=== PATIENT | female | born 1950 | race Caucasian/White ===

== ENCOUNTER → 2017-08-02 | Outpatient (CLI) | payer MEDICARE, MEDICAID ==
[~2017-08-02] MED LIST: ASPIR 8181 MG PO; ATORVASTATIN CA40 MG PO; BRILINTA90 MG PO; COMBIVENT INH; FISH OIL 1,001000 M2 PO; FLONASE 0.05%50 MCG NASAL; LASIX 20 MG TAB20 MG PO; NITROGLYCERIN0.4 MG SUBLING; OMEPRAZOLE20 M2 PO; PRAVACHOL40 MG PO; XANAX 0.5 MG0.5 MG PO
== END ==
LOC: M.ULTRA 08-01 11:30
DX: I65.23 Occlusion and stenosis of bilateral carotid arteries (principal); I10 Essential (primary) hypertension; R06.00 Dyspnea, unspecified; R07.9 Chest pain, unspecified; E78.2 Mixed hyperlipidemia; I25.10 Atherosclerotic heart disease of native coronary artery without angina pectoris; Z72.0 Tobacco use

== ENCOUNTER → 2019-02-12 | Outpatient (CLI) | payer MEDICARE, MEDICAID ==
--- NOTE | 2019-02-12 13:59 | CARDNUC ---
[place] [address] CARDIAC NUCLEAR IMAGING REPORT Name: NIESAHSIM DUNN Room: [facility]#: [id number] Admission: 02/12/19 Attend Phys: Odell Rogers, Discharge: Date of : 48 Date of Service: 02/12/19 1359 Report #: [id number] THIS REPORT FOR: //name// APPROVED REPORT Imaging Protocol: Rest Tc-99m/Stress Tc-99m 1 day Study performed: 02/12/2019 09:45:00 Indication: Dyspnea Patient Location: Out-Patient Stress Tech: Elsy Albright Stress Nurse: Mary Torres RN NM Tech:VINICIO Marie Ht: 5 ft 2 in Wt: 140 lbs BSA: 1.64 m2 BMI: 25.60 Medical History Medical History: cad, hyprlipidemia, hypertension Medications: carvedilol, asa-81, fenofibrate Allergies: codeine, morphone, penicillin Cardiac Risk Factors: age, hyperlipidemia, hyprtension Previous Cardiac Procedures: pci Exercise History: Indeterminate Meds Held (24 hrs): carvedilol Resting Data Rest SPECT myocardial perfusion imaging was performed in supine position 30 minutes following the intravenous injection of 11.0 mCi of Tc-99m Sestamibi. Time of rest injection: 1000 Date: 02/12/2019 The images were gated to evaluate regional wall motion and calculate left ventricular ejection fraction. Administration Route: IV Administration Site: Right Arm Pharmacologic Stress Pharmacologic stress test was performed by injecting Regadenoson 0.4 mg IV push over 10-15 seconds immediately followed by the intravenous injection of 33.2 mCi of Tc-99m Sestamibi. Time of stress injection: 1130 Date: 02/12/2019 Administration Route: IV Administration Site: Right Arm Gated Stress SPECT was performed 40 [place] [address] CARDIAC NUCLEAR IMAGING REPORT Name: SIM SCHERER Room: [facility]#: [id number] Admission: 02/12/19 Attend Phys: Odell Rogers, Discharge: Date of : 48 Date of Service: 02/12/19 1359 Report #: [id number] The images were gated to evaluate regional wall motion and calculate left ventricular ejection fraction. Prone imaging was performed. Stress Test Details Stress Test: Pharmacologic stress testing performed using 0.4 mg of regadenoson per 5 mL given IV over 10 seconds. Reason for pharmacologic stress test: physical limitation. HR Max Heart Rate (APMHR): 151 bpm Resting HR: 72 bpm Target HR (85% APMHR): 128 bpm Max HR Achieved: 94 bpm % of APMHR: 62 Recovery HR: 86 bpm HR response to stress: Normal HR response to stress BP Resting BP: 146/85 mmHg Max BP: 224/87 mmHg Recovery BP: 157/86 mmHg BP response to stress: Abnormal hypertensive response to stress. ECG Resting ECG: Sinus Rhythm, one vpc Stress ECG: Sinus Rhythm, normal EKG ST Change: None Arrhythmia: None Recovery ECG: Sinus Rhythm, normal EKG Recovery ST Change: None Recovery Arrhythmia: None Clinical Reason for Termination: Completed protocol Stress Symptoms: None Exercise duration: 0 min sec Exercise capacity: 1 METs Nurse Comments pt unable to walk on treadmill due to weak legs Stress ECG Conclusion Normal hemodynamic response to pharmacologic stress. Non-diagnostic ekg stress due to failure to attain target HR. Study Quality Study: [place] [address] CARDIAC NUCLEAR IMAGING REPORT Name: SIM SCHERER Room: [facility]#: [id number] Admission: 02/12/19 Attend Phys: Odell Rogers, Discharge: Date of : 48 Date of Service: 02/12/19 1359 Report #: [id number] Artifact: Mild Breast artifact Lung Uptake: Normal Study Data At rest, the left ventricular ejection fraction was 75%.. Post stress, the left ventricular ejection was 77%.. TID = 1.11. Perfusion No evidence of stress induced ischemia or prior myocardial infarction. Normal left ventricular size and function with no regional wall motion abnormalities. Images were reviewed using [employer]. Nuclear Conclusion ECG Findings: non-diagnostic Clinical Findings: negative for ischemia Nuclear Findings: negative for ischemia Exercise Capacity: not assessed Left Ventricular Function: normal Risk Study: low Normal study. No scintigraphic evidence for myocardial ischemia or scar. <Conclusion> Normal hemodynamic response to pharmacologic stress. Non-diagnostic ekg stress due to failure to attain target HR. <ELECTRONICALLY SIGNED> By: Linda Mederos MD, [facility] 02/12/19 1359 1359 1359 Linda Mederos MD, FACC /INF
== END ==
LOC: M.NUC 01-21 15:08 → M.CRD 09:00 → M.NUC 09:45
DX: R06.00 Dyspnea, unspecified (principal); I25.10 Atherosclerotic heart disease of native coronary artery without angina pectoris; E78.5 Hyperlipidemia, unspecified; I10 Essential (primary) hypertension; Z88.5 Allergy status to narcotic agent; Z88.0 Allergy status to penicillin

== ENCOUNTER 2019-12-29 08:44 | Observation (INO) | payer MEDICARE, MEDICAID ==
[~2019-12-29] VITALS: Ht 154.9 cm; Wt 62.6 kg
[2019-12-29] VITALS (13 sets, daily range): BP systolic 116–147; BP diastolic 53–89
--- NOTE | ~2019-12-29 | H ---
[address] [address] HISTORY AND PHYSICAL Name: SIM SCHERER Room: [address] Sj Morgan#: [id number] Admission: 12/29/19 Attend Phys: Odell Rogers MD Discharge: 12/30/19 Date of : 48 Report #: [id number] THIS REPORT FOR: //name// cc: George Chang Joel M. DO ~ THIS REPORT FOR: //name// Please refer to the History and Physical performed in the physician's office. By: [facility]7Medical Records Staff [facility] /MARY
[2019-12-29] MEDS ORDERED: LIVALO4 MG PO (09:20)
[2019-12-29 09:22] LABS: HEMATOCRIT 43.7 % (37.0-47.0); HEMOGLOBIN 15.1 gm/dL (12.0-15.0); MCH 30.8 pg (26.0-34.0); MCHC 34.5 g/dL (28.0-37.0); MCV 89.2 fL (80.0-100.0); MPV 8.5 fl. (7.2-11.1); RBC 4.9 mil/uL (4.20-5.00); RDW-CV 13.9 % (10.5-14.5); WBC 6.3 thou/uL (4.0-11.0)
[2019-12-29 09:32] LABS: APTT 26.6 Seconds (25.0-31.3); INR 1.1
[2019-12-29 09:33] LABS: ANION GAP 6 mmol/L (7-16); BUN 17 mg/dL (7-18); CALCIUM 8.7 mg/dL (8.5-10.1); CHLORIDE 104 mmol/L (98-107); CO2 31 mmol/L (21-32); CREATININE 0.7 mg/dL (0.6-1.3); GLUCOSE 96 mg/dL (70-99); POTASSIUM 4.3 mmol/L (3.5-5.1); SODIUM 141 mmol/L (136-145)
[2019-12-29 09:37] LABS: ALBUMIN 3.4 g/dL (3.4-5.0); ALKALINE PHOSPHATASE 86 U/L (46-116); CHOLESTEROL 226 mg/dL (<200); HDL CHOLESTEROL 45 mg/dL (>40); LDL CHOLESTEROL ND mg/dL (<100); SGOT 20 U/L (15-37); SGPT 24 U/L (30-65); TOTAL BILIRUBIN 0.3 mg/dL (<0.1-1.0); TOTAL PROTEIN 7.1 g/dL (6.4-8.2); TRIGLYCERIDE 401 mg/dL (<150); VLDL 80 mg/dL (<40)
[2019-12-29 09:39] LABS: SERUM ASSESSMENT Clear
--- NOTE | 2019-12-29 12:27 | EKG ---
[place] [address] ELECTROCARDIOGRAM REPORT Name: SIM SCHERER Room: [address]R.#: [id number] Admission: 12/29/19 Attend Phys: Odell Rogers, Discharge: Date of : 48 Date of Service: 12/29/19 0916 Report #: [id number] THIS REPORT FOR: //name// 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
[2019-12-29] MEDS ORDERED: COREG3.125 MG PO (14:45)
--- NOTE | 2019-12-29 16:19 | EKG ---
[place] [address] ELECTROCARDIOGRAM REPORT Name: SIM SCHERER Room: [address]R.#: [id number] Admission: 12/29/19 Attend Phys: Odell Rogers, Discharge: Date of : 48 Date of Service: 12/29/19 1311 Report #: [id number] THIS REPORT FOR: //name// [facility] Test Date: 2019-12-29 Test Time: 13:11:50 Pat Name: SIM SCHERER Department: Room: [facility] Gender: F Duty Officer: : 1950 Requested By: Odell Rogers Order Number: [id number] Zulema MD: Odell Rogers Measurements Intervals [place] Rate: 78 P: 71 CT: 160 QRS: 73 QRSD: 102 T: 82 QT: 378 QTc: 431 Interpretive Statements Sinus rhythm Compared to ECG 12/29/2019 09:16:58 No significant changes Electronically Signed On 12-29-2019 16:19:50 CDT by Odell Rogers [email or web address] <ELECTRONICALLY SIGNED> By: Odell Rogers MD, FAC 12/29/19 1619 1311 1311 Odell Rogers MD, [facility] /EPI
[2019-12-29] MEDS ORDERED: VENTOLIN HFA INH8 GM INH (17:50)
[2019-12-29] MEDS ORDERED: ANORO ELLIPTA1 EACH IH (17:51)
[2019-12-29] MEDS ORDERED: CHILDREN'S ZYRT10 M1 PO (17:51)
--- NOTE | 2019-12-29 19:39 | NUR ---
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 RIGHT GROIN CATH SITEIS SOFT, NO HEMATOMA, NO BLEEDING,SMALLAMOUNT OF BRUISING NOTED. KEPT BEDREST UNTIL 1800, GOT UP WITHOUT CALLING STAFF TO CHAIR. SAT UP FOR 30 MIN AND ON RECHECK THE RIGHT GROIN HAS MORE BRUISING THAT IS DARKERPURPLE WITH SMALL AMOUNT OF BLOOD ON DRESSING. SHE WAS EDUCATED TOLAY BACK IN BED FOR TONIGHT SO THERE ARE NO COMPLICATIONS WITH BLEEDING.SHE VERBALIZED UNDERSTANDING. BP MONITORED ANDAPPROPRIATE. VSS. SR ON THE MONITOR. C/O SOA, HX OFATHSMA, BREATHING TX ORDERED. REPORT GIVEN TO LINNEA BLACK.
[2019-12-30 03:59] LABS: HEMATOCRIT 41.5 % (37.0-47.0); HEMOGLOBIN 14.4 gm/dL (12.0-15.0); MCH 30.8 pg (26.0-34.0); MCHC 34.7 g/dL (28.0-37.0); MCV 88.6 fL (80.0-100.0); MPV 8.1 fl. (7.2-11.1); RBC 4.69 mil/uL (4.20-5.00); RDW-CV 13.6 % (10.5-14.5)
[2019-12-30 04:00] VITALS: BP 116/75
[2019-12-30 04:18] LABS: ALBUMIN 3.3 g/dL (3.4-5.0); CALCIUM 8.9 mg/dL (8.5-10.1); CREATININE 0.9 mg/dL (0.6-1.3); POTASSIUM 3.6 mmol/L (3.5-5.1); TOTAL BILIRUBIN 0.4 mg/dL (<0.1-1.0); TOTAL PROTEIN 6.9 g/dL (6.4-8.2)
--- NOTE | 2019-12-30 06:28 | NUR ---
PATIENT PROGRESSING TOWARDS GOALS: RIGHT GROIN CATH SITE BRUISING BUT REMAINS SOFT, MINIMAL BLEEDING NOTED ON DRESSING, NO EXTENSION BEYOND MARKED BORDERS FROM THE BEGINNING OF THE SHIFT. PATIENT DENIES PAIN AND DISCOMFORT. PATIENT IS HOPEFUL TO BE DISCHARGED TODAY. CALL LIGHT WITHIN REACH
[2019-12-30 08:02] VITALS: BP 109/60
[2019-12-30] MEDS ORDERED: EFFIENT10 MG PO (08:37)
--- NOTE | 2019-12-30 09:56 | NUR ---
PT DISCHARGED HOME. COPY OF DISCHARGE PAPERWORK TO PT WITH ELPLAINATION. PT VERBALIZED UNDERSTANDING. IV ACCESS REMOVED.
--- NOTE | 2019-12-30 15:07 | EKG ---
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: ELOISE : 1950 Requested By: Odell Rogers Order Number: [id number] [place] MD: Walker Gresham Measurements Intervals [place] Rate: 90 P: 69 [place]: 151 QRS: 66 QRSD: 98 T: 71 QT: 374 QTc: 458 Interpretive Statements Sinus rhythm Borderline T wave abnormalities Compared to ECG 12/29/2019 13:11:50 T-wave abnormality now present Electronically Signed On 12-30-2019 15:06:46 CDT by Walker Gresham [email or web address] <ELECTRONICALLY SIGNED> By: Walker Gresham MD, [facility] 12/30/19 1506 0339 0339 Walker Gresham MD, [facility] /EPI
--- NOTE | 2019-12-31 08:34 | D ---
[address] [address] DISCHARGE SUMMARY Name: SIM SCHERER Room: [address] Sj Morgan#: [id number] Admission: 12/29/19 Attend Phys: Odell Rogers MD Discharge: 12/30/19 Date of : 48 Report #: [id number] THIS REPORT FOR: //name// cc: George Chang Joel M. DO THIS REPORT FOR: //name// CC: Mariusz Rogers DISCHARGE DIAGNOSES: 1. Unstable angina. 2. Coronary artery disease. 3. Hyperlipidemia. 4. Hypertension. 5. History of tobacco abuse. 6. Carotid vascular disease. PROCEDURES DURING THE HOSPITALIZATION: 1. Coronary angiography. 2. Left heart catheterization. 3. Left ventriculography. 4. Percutaneous coronary intervention to the first diagonal branch of the left anterior descending coronary artery. 5. Percutaneous coronary intervention to the first obtuse marginal branch of the circumflex coronary artery. HOSPITAL COURSE: The patient was brought to the cardiac catheterization lab with increasing chest pain, typical for exertional angina consistent with unstable angina. The patient was brought to the cardiac catheterization lab where coronary angiography revealed high grade stenoses of the first diagonal branch of the LAD and first obtuse marginal branch of the circumflex coronary artery. The patient underwent percutaneous coronary intervention with drug-eluting stents placed to the proximal portion of the first diagonal branch of the left anterior descending coronary artery and the proximal portion of the first obtuse marginal branch of the circumflex coronary artery without complication. Postoperatively, the patient did have some bruising of the femoral arteriotomy site. There was no significant hematoma formation. The patient otherwise recovered in usual fashion. The patient is being discharged uneventfully. DISCHARGE MEDICATIONS: Will include Effient 10 mg daily, to be continued for 6 months. Aspirin 81 mg daily, omeprazole 20 mg daily, pitavastatin 4 mg daily, carvedilol 3.125 mg b.i.d., Zyrtec 10 mg daily, Nitrostat 0.4 mg sublingual p.r.n., Combivent inhaler 1-2 puffs q.i.d., fluticasone nasal inhaler 2 sprays daily, alprazolam 0.5 mg p.o. b.i.d., albuterol inhaler 1 puff q. 4 [place] [address] DISCHARGE SUMMARY Name: SIM SCHERER Room: [address]#: [id number] Admission: 12/29/19 Attend Phys: Odell Rogers MD Discharge: 12/30/19 Date of : 48 Report #: [id number] p.r.n., Anoro Ellipta inhaler 1 inhalation daily. DISPOSITION: I have asked the patient to follow up with Cardiology office in 4 weeks. <ELECTRONICALLY SIGNED> By: Odell Rogers MD, FACC 12/31/19 0834 0845 0911Michael Emmanuel Rogers MD, [facility] /nt
--- NOTE | 2019-12-31 15:41 | CARD ---
[address] [address] CARDIAC CATH REPORT Name: SIM SCHERER Room: [address] Sj Morgan#: [id number] Admission: 12/29/19 Attend Phys: Odell Rogers MD Discharge: 12/30/19 Date of : 48 Report #: [id number] THIS REPORT FOR: //name// cc: George Chang Joel M. DO ~ APPROVED REPORT Study performed: 12/29/2019 07:43:39 Patient Details The patient is a 69 year-old female Event Personnel Odell Rogers Librarian Specialist, Lexi Aguirre RN Typewriter Ribbon Winder, Paramjit Perez ELECTRICIAN SUPERVISOR Monitor, Jaimie Qureshi RTR Scrub, Anaya York RN Typewriter Ribbon Winder Procedures Performed Art Access - R femoral artery, Left Heart Cath w/or w/o Coronaries LHC, RENZO Place w/wo Plasty Single DIAG , RENZO Place w/wo Plasty Addl BR OM 1 DESADDL , Hemostasis w/ Angioseal Admission/Lab Medications/Medications given during procedure Angiomax IV 10 ml, Aspirin PO 325 mg, Effient PO 60 mg Procedure Narrative The patient was brought electively to the Cardiac Catheterization Laboratory and was prepped and draped in a sterile manner. The right femoral was infiltrated with 2% Lidocaine subcutaneous anesthesia. A 6F Waskish sheath was inserted into the right femoral artery. Coronary angiography was performed using coronary diagnostic catheters. The right coronary system was accessed and visualized with a 6F JR4 catheter. The left coronary system was accessed and visualized with a 6F JL4 catheter. The left ventricle was accessed and visualized with a 6F Pigtail catheter. Left ventricular/Aortic Valve gradient assessed via catheter pullback. Left ventriculogram was performed in GOMEZ projection. Closure device was deployed with a 6 Fr Angioseal STS 6Fr. The patient tolerated the procedure well and there were no complications associated with the procedure. There was no hematoma. Intraoperative Conscious Sedation Sedation start time: 1017 Case end Time: 1128 Fentanyl 50 mcg Versed 2 [place] [address] CARDIAC CATH REPORT Name: SIM SCHERER [address] [id number] Admission: 12/29/19 Attend Phys: Odell Rogers MD Discharge: 12/30/19 Date of : 48 Report #: [id number] Fluoro Time: 15.7 minutes Dose: DAP 079066 cGycm2 1754 mGy Contrast Type and Amount: Visipaque 410 ml Coronary Angiography The patient's coronary anatomy is right dominant. Diagnostic Cath Left Main The left main coronary artery is short and normal and bifurcates into a left anterior descending and circumflex coronary artery. LAD The left anterior descending coronary artery has some mild plaquing proximally. There is approximately 30% narrowing proximally. The mid and distal vessel are free of significant disease. Diagonal 1 A large branch first diagonal branch has a calcified 70% stenosis proximally. Circumflex The circumflex coronary artery is free of significant disease in its proximal mid and distal portion. OM1 A large and branched first obtuse marginal branch has a 90% narrowing proximally. OM2 A small second obtuse marginal branch is normal. Right Coronary The right coronary artery has a widely patent stent extending from the proximal to mid vessel. Distally there are 20% narrowings noted. R PDA The right PDA has a 50% narrowing in its mid to distal portion. RPLV The right posterior lateral LV branch is free of significant disease. Left Ventriculography The left ventricle is normal in size with normal contractility. The left ventricular ejection fraction is estimated to be 65-70%. Hemodynamics The aortic pressure is 160/85 mmHg with a mean of 115 mmHg. The left ventricular pressure is 120/8 mmHg with a mean of mmHg. The left ventricular end diastolic pressure is 13 mmHg. PCI Technique Lesion Anticoagulation was achieved with Angiomax. Patient was preloaded with Angiomax IV 10 ml. Percutaneous coronary intervention was performed on the lateral first diagnonal branch segment. The lesion stenosis prior to intervention was 70% with MARSHA 3 flow. A 6FR XB 3.0 [place] [address] CARDIAC CATH REPORT Name: SIM SCHERER Room: [address] Sj Morgan#: [id number] Admission: 12/29/19 Attend Phys: Odell Rogers MD Discharge: 12/30/19 Date of : 48 Report #: [id number] 100CM Guide Catheter was used to engage the lm ostium. A BMW 190cm Interventional Guidewire was used to cross the lesion. BALLOON DILATION A Balloon catheter Mini Trek RX 2.0 X 12 was inserted and inflated up to 9.00atm for 3seconds. Additional Inflation: 12.00atm for 14seconds. STENT DEPLOYMENT A drug-eluting stent Chris RX Stent 2.0X12mm was inserted and inflated up to 14.00atm for 20seconds. Additional Inflation: 12.00atm for 11seconds. Additional Inflation: 14atm for 12seconds. POST STENT DEPLOYMENT BALLOON DILATION A Balloon catheter NC Trek RX 2.25 X 8 was inserted and inflated up to 11.00atm for 15seconds. Additional Inflation: 16atm for 7seconds. Final angiography reveals 10 % stenosis with MARSHA 3 flow. PCI Technique Lesion 2 Percutaneous Coronary Intervention was performed on the first obtuse marginal branch segment. Patient was preloaded with Angiomax IV 10 ml. The lesion stenosis prior to intervention was 90% with MARSHA 3 flow. A 6FR XB 3.0 100CM Guide Catheter was used to engage the lm ostium. A BMW 190cm Interventional Guidewire was used to cross the lesion. Balloon Dilation A Balloon catheter Trek RX 2.5 X 8 was inserted and inflated up to 12atm for 10seconds. Additional Inflation: 12atm for 6seconds. Stent Deployment A drug-eluting stent Chris RX Stent 2.05N79ml was inserted and inflated up to 12atm for 8seconds. Additional Inflation: 13atm for 10seconds. Final angiography reveals 0 % stenosis with MARSHA 3 flow. Conclusion 1. Hemodynamically significant stenoses noted in the first diagonal and first obtuse marginal branches. 2. Widely patent stent noted extending from the proximal to mid right coronary artery. 3. Normal left ventricular systolic function. [address] [address] CARDIAC CATH REPORT Name: SIM SCHERER Room: [address]#: [id number] Admission: 12/29/19 Attend Phys: Odell Rogers MD Discharge: 12/30/19 Date of : 48 Report #: [id number] 4. Normal left ventricular end-diastolic pressure. 5. Successful PCI at the sute of 70% first diagonal stenosis with 10% residual narrowing 6. Successful PCI at the site of 90% narrowing of the first marginal branch of the Cx with 0% residual narrowing Recommendations 1. Continue aggressive risk factor modification. 2. Percutaneous coronary intervention to the first diagonal and first obtuse marginal branches. Medications Administered Aspirin (any) Prasugrel Diagnostic Cath Approved by: Odell Rogers MD Date/Time: 12/31/2019 15:40:22 <ELECTRONICALLY SIGNED> By: Walker Gresham MD, [facility] 12/31/19 1541 1541 1541Walker Gresham MD, FAC /INF
== END 2019-12-30 10:25 | disposition home or self-care (01) ==
LOC: M.CL 08:44 → M.2W 11:41 → M.TBA-CV 11:41 → M.2W 14:05
PROVIDERS: ADMIT Internal Medicine Cardiovascular Disease; ATTEND Internal Medicine Cardiovascular Disease
DX: Z03.818 Encounter for observation for suspected exposure to other biological agents ruled out (principal); I25.110 Atherosclerotic heart disease of native coronary artery with unstable angina pectoris; I10 Essential (primary) hypertension; E78.5 Hyperlipidemia, unspecified

== ENCOUNTER 2021-05-28 16:25 | Inpatient (IN) | payer OTHER, MEDICAID ==
[~2021-05-28] VITALS: Ht 157.5 cm; Wt 62.6 kg
[~2021-05-28 16:25] MED LIST changes: +ANORO ELLIPTA1 EACH IH; +CHILDREN'S ZYRT10 M1 PO; +COREG3.125 MG PO; +EFFIENT10 MG PO; +LIVALO4 MG PO; +VENTOLIN HFA INH8 GM INH
[2021-05-28 16:26] VITALS: BP 159/72
[2021-05-28 18:05] LABS: INFLUENZA A ANTIGEN Negative (Negative); INFLUENZA B ANTIGEN Negative (Negative)
[2021-05-28 18:25] LABS: ABSOLUTE LYMPHOCYTES 1.3 thou/uL (0.8-5.3); HEMOGLOBIN 14.4 gm/dL (12.0-15.0)
[2021-05-28 18:33] LABS: ABSOLUTE EOSINOPHILS 0.1 thou/uL (0.0-0.7); ABSOLUTE MONOCYTES 0.5 thou/uL (0.0-1.2); ABSOLUTE NEUTROPHILS 6.1 thou/uL (1.6-8.1); BASOPHILS 0.5 %; EOSINOPHILS 0.7 %; HEMATOCRIT 43.6 % (37.0-47.0); MCH 28.6 pg (26.0-34.0); MCV 86.7 fL (80.0-100.0); MONOCYTES 6.7 %; NUCLEATED RBCS 1 /100WBC; POLYS 76.1 %; RBC 5.03 mil/uL (4.20-5.00); RDW-CV 15.6 % (10.5-14.5)
[2021-05-28 19:08] LABS: CALCIUM 8.9 mg/dL (8.5-10.1); CREATININE 0.8 mg/dL (0.6-1.3); POTASSIUM 3.8 mmol/L (3.5-5.1)
[2021-05-28 19:10] LABS: PLATELET COUNT* 300 thou/uL (150-400)
[2021-05-28 19:18] LABS: ALBUMIN 2.8 g/dL (3.4-5.0); TOTAL BILIRUBIN 0.3 mg/dL (<0.1-1.0); TOTAL PROTEIN 7.2 g/dL (6.4-8.2)
[2021-05-28 22:15] VITALS: BP 125/77
[2021-05-29 02:15] VITALS: BP 136/85
[2021-05-29 05:25] VITALS: BP 125/77; BP 132/63
--- NOTE | 2021-05-29 08:17 | EKG ---
[place] [address] ELECTROCARDIOGRAM REPORT Name: SIM SCHERER Room: [place] [address] ADM IN 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
[2021-05-29 09:00] VITALS: BP 133/73
--- NOTE | 2021-05-29 09:50 | NUR ---
Pt is admitted on 05/28/21 with Hypoxia/Pneumonia. Called pt's significant other - Richard to complete assessment. Richard reports they live in a home with 5 steps to enter but no steps in the home. Pt was independent previously with ADL's. Pt was independent with mobility. Pt has tried a CPAP machine but refuses to use it. Pt has no hx of SNF. Richard reports she has a recent hx of [facility] for home health. Pt was supposed to see her PCP today. CM to continue to follow for discharge planning.
[2021-05-29 14:45] VITALS: BP 101/69
[2021-05-29 20:00] VITALS: BP 133/79
[2021-05-30] VITALS (8 sets, daily range): BP systolic 107–138; BP diastolic 55–83
[2021-05-31] VITALS: BP 149/75
[2021-05-31 02:37] LABS: CALCIUM 8.4 mg/dL (8.5-10.1); CREATININE 0.7 mg/dL (0.6-1.3); POTASSIUM 4.2 mmol/L (3.5-5.1)
[2021-05-31 08:00] VITALS: BP 141/77
--- NOTE | 2021-05-31 08:10 | NUR ---
PATIENT HAS SLEPT OFF AND ON DURING THE NIGHT. VSS ON 5L 02 VIA NASAL CANNULA. LUNG SOUNDS DIM WITH WHEEZES. MEDICATIONS GIVEN ORDERED AND CHARTED. NOTIFIED OF PATIENT HAVING SOME SLIGHT SOA AND LUNGS SOUNDING LIKE POSSIBLE FLUID OVERLOAD. NEW ORDER GIVEN TO DC IV FLUIDS PER . LASIX GIVEN X 1 PER ORDER. BMP ALSO ORDERED AND CHEST X-RAY OBTAINED. ASSESSMENT ORDERED. PATIENT REMOVING OXYGEN AT TIMES AND IS ANXIOUS AND FUSSY AT TIMES. IV IN LEFT FOREARM-SL. FALL PRECAUTIONS IN PLACE AND HOURLY ROUNDS MADE. WILL CONTINUE WITH PLAN OF CARE AND NURSING TO MONITOR.
[2021-05-31 12:00] VITALS: BP 124/75; BP 133/71
--- NOTE | 2021-05-31 14:05 | NUR ---
Discussed pt in team meeting. Doctor is anticipating discharge tommorow (06/01/21) with no needs. CM to follow for discharge planning.
[2021-05-31 17:11] VITALS: BP 167/91
--- NOTE | 2021-05-31 19:03 | NUR ---
THIS RN AGREES WITH THE CHARTING COMPLETED BY DIANE WHITTAKER ON 05/31/21
[2021-06-01] VITALS: BP 176/92
[2021-06-01 04:00] VITALS: BP 153/92
[2021-06-01 08:15] VITALS: BP 156/77
--- NOTE | 2021-06-01 08:48 | NUR ---
PATIENT HAS SLEPT OFF AND ON DURING THE NIGHT. VSS ON 5L 02 VIA NASAL CANNULA. PATIENT REMOVES OXYGEN AT TIMES AND DESATS ON EXERTION AND WHEN UP TO BSC. MEDICATIONS GIVEN ORDERED AND CHARTED. PATIENT VERY ANXIOUS AND TEARFUL IN THE AM. NOTIFFLOR AND NEW ODAYSE GIVEN FOR PRN ANXIETY MEDICATION. PATIENT VERY IMPULSIVE AT TIMES AND DOES NOT WANT BED ALARM ON AND REFUSES IT AT TIMES. FALL EDUCATION GIVEN. FALL PRECAUTIONS IN PLACE AND HOURLY ROUNDS MADE. PATIENT INSTRUCTED TO USE CALL LIGHT WHEN NEEDING ASSISTANCE. WILL CONTINUE WITH PLAN OF CARE AND NURSING TO MONITOR.
[2021-06-01 12:00] VITALS: BP 173/108
[2021-06-01] MEDS ORDERED: COREG6.25 MG PO (12:04)
[2021-06-01] MEDS ORDERED: PREDNISONE 20 M20 MG PO (12:04)
[2021-06-01] MEDS ORDERED: CEFDINIR300 MG PO (12:04)
[2021-06-01] MEDS ORDERED: CARVEDILOL3.125 MG PO (12:06)
[2021-06-01] MEDS ORDERED: NAC600 MG PO (12:13)
[2021-06-01 13:10] LABS: HEMATOCRIT 42.1 % (37.0-47.0); HEMOGLOBIN 14.1 gm/dL (12.0-15.0); MCH 28.5 pg (26.0-34.0); MCHC 33.5 g/dL (28.0-37.0); MCV 85.3 fL (80.0-100.0); MPV 7.5 fl. (7.2-11.1); NUCLEATED RBCS 0 /100WBC; PLATELET COUNT* 370 thou/uL (150-400); RBC 4.94 mil/uL (4.20-5.00); RDW-CV 14.8 % (10.5-14.5); WBC 9.7 thou/uL (4.0-11.0)
[2021-06-01 13:25] LABS: CREATININE 0.6 mg/dL (0.6-1.3); MAGNESIUM 2.1 mg/dL (1.8-2.4); POTASSIUM 3.7 mmol/L (3.5-5.1); TOTAL BILIRUBIN 0.3 mg/dL (<0.1-1.0); TOTAL PROTEIN 6.8 g/dL (6.4-8.2)
[2021-06-01 14:34] LABS: ABSOLUTE LYMPHOCYTES 0.3 thou/uL (0.8-5.3); ABSOLUTE MONOCYTES 0.1 thou/uL (0.0-1.2); ABSOLUTE NEUTROPHILS 9.3 thou/uL (1.6-8.1)
[2021-06-01 14:35] LABS: PLATELET ESTIMATE ADEQUATE
[2021-06-01 16:00] VITALS: BP 158/98
--- NOTE | 2021-06-01 17:17 | NUR ---
PLAN OF CARE: INITIAL PLAN TO D/C PT HOME TODAY WITH HH NO ON HOLD. RN INFOMRS THAT THE PHYSICIAN HAS DECIDED TO HOLD PT'S D/C. CM ARRANGED HOME OXYGEN FOR THE PT WITH [facility]. CM WILL DISPENSE O2 TANK TO THE PT PRIOR TO D/C. PT MUST D/C WITHIN THE NEXT 24 HOURS OR SHE WILL NEED NEW REST AND EX OX FOR HOME O2. CM WILL REMAIN AVAILABLE TO ASSIST AND FOLLOW NEEDED. [facility] PHONE: [phone]
[2021-06-01 20:20] VITALS: BP 164/89
[2021-06-02 02:00] VITALS: BP 154/107
--- NOTE | 2021-06-02 05:34 | NUR ---
PATIENT HAS SLEPT OFF AND ON DURING THE NIGHT. VSS ON 1L 02 VIA NASAL CANNULA, ALTHOUGH BP ELEVATED. MEDICATIONS GIVEN ORDERED AND CHARTED. PATIENT ANXIOUS AND NOT HAPPY THAT SHE IS HERE AND VERBALIZES THIS. PATIENT IMPULSIVE AT TIMES AND DOES NOT USE CALL LIGHT WHEN TRYING TO GET UP. PATIENT PULLED IV OUT THIS AM. NO C/O PAIN. FALL PRECAUTIONS IN PLACE AND HOURLY ROUNDS MADE. WILL CONTINUE WITH PLAN OF CARE AND NURSING TO MONITOR.
[2021-06-02 05:51] VITALS: BP 162/85
--- NOTE | 2021-06-02 07:43 | NUR ---
PATIENT PULLED IV OUT THIS AM AND IS REFUSING TO HAVE NEW IV PUT IN. PATIENT STATING THAT SHE WANTS TO GO HOME. NURSING TO CONTINUE MONITORING.
--- NOTE | 2021-06-02 09:49 | NUR ---
PT PULLED OUT IV LAST NIGHT AND IS REFUSING NEW IV START.Y
[2021-06-02 11:00] VITALS: BP 160/93
[2021-06-02] MEDS ORDERED: NORVASC5 MG PO (12:27)
[2021-06-02 13:03] VITALS: BP 160/93
[2021-06-02 13:19] VITALS: BP 160/93
--- NOTE | 2021-06-02 13:20 | NUR ---
SERENITY IV AND TELE. PT UNDERSTANDS ALL FOLLOW UP ORDERS. WILL DISCHARGE TO HOME WITH OXYGEN.
== END 2021-06-02 13:30 | disposition home or self-care (01) | DRG 177 ==
LOC: M.ERS 16:25 → M.TBA-ER 18:12 → M.2W 18:12
PROVIDERS: Emergency Medicine Emergency Medical Services; Internal Medicine; ADMIT Internal Medicine; ATTEND Internal Medicine
DX: J15.6 Pneumonia due to other Gram-negative bacteria (principal); J96.01 Acute respiratory failure with hypoxia; J44.1 Chronic obstructive pulmonary disease with (acute) exacerbation; J44.0 Chronic obstructive pulmonary disease with (acute) lower respiratory infection; I25.10 Atherosclerotic heart disease of native coronary artery without angina pectoris; E03.9 Hypothyroidism, unspecified; K21.9 Gastro-esophageal reflux disease without esophagitis; Z88.0 Allergy status to penicillin; Z90.49 Acquired absence of other specified parts of digestive tract; Z20.822 Contact with and (suspected) exposure to COVID-19